=== PATIENT | male | born 1965 ===

== ENCOUNTER 2016-09-07 11:00 | Emergency (ER) | payer MEDICARE ==
[2016-09-07 11:00] VITALS: BMI 32.9
[2016-09-07 11:19] VITALS: RESP 16
[2016-09-07] MEDS ORDERED: Povidone Iodine Topical 10% Sol ONE (11:29)
[2016-09-07] MEDS ORDERED: Ciprofloxacin 400mg/200ml D5W 200 ML IVPB STA (11:30)
[2016-09-07] MEDS ORDERED: metroNIDAZOLE 500mg/100ml NS 100 ML IVPB STA (11:30)
[2016-09-07] MEDS ORDERED: metroNIDAZOLE 500mg/100ml NS 100 ML IVPB ONE (11:33)
[2016-09-07] MEDS ORDERED: Ciprofloxacin 400mg/200ml D5W 200 ML IVPB ONE (11:33)
[2016-09-07 11:44] LABS: BASO # 0.1 K/uL (0.0-0.2); BASO % 0.7 % (0.0-2.0); EOS # 0.7 K/uL (0.0-0.7); EOS % 8.6 % (0.0-4.0); HEMATOCRIT 46.6 % (35.0-51.0); LYMPH # 2.2 K/uL (1.0-4.3); MEAN CELL VOLUME 88.6 fl (80.0-94.0); MEAN CORPUSCULAR HGB CONC 32.7 g/dL (33.0-37.0); MEAN PLATELET VOLUME 8.9 fl (7.2-11.7); MONO # 0.5 K/uL (0.0-0.8); MONO % 6.7 % (0.0-10.0); NEUT # 4.4 K/uL (1.8-7.0); NRBC % 0.1 % (0.0-0.0); RED CELL DISTRIBUTION WIDTH 14.2 % (11.5-14.5); WHITE BLOOD COUNT 7.8 K/uL (4.8-10.8)
--- NOTE | 2016-09-07 11:55 | ED PDOC ---
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) Current Symptoms Are (Timing): Still Present Location Of Injury: Right: Hand, Anterior: Hand Severity: Mild Additional History Per: Patient Additional Complaint(s): pt right hand bit by dog after becoming agitated with a family argument, no hand n/t/w, no bleeding, dog immunizations up to date, dog acting normally no prev episodes no other injury Past Medical History Reviewed: Historical Data, Nursing Documentation, Vital Signs Vital Signs: Last Vital Signs Temp 98 F 09/07/16 11:11 Pulse 78 09/07/16 11:13 Resp 16 09/07/16 11:13 BP 148/116 H 09/07/16 11:13 Pulse Ox 98 09/07/16 13:08 - Medical History PMH: Alzheimer's Disease, Back Problems, CAD, COPD, HTN, Hypercholesterolemia, Hyperlipidemia Denies: HIV, Chronic Kidney Disease - Surgical History Surgical History: Denies: Pacemaker - Family History Family History: States: Unknown Family Hx, Hypertension - Living Arrangements Living Arrangements: With Family - Social History Current smoker - smoking cessation education provided: No - Home Medications Home Medications: Ambulatory Orders Medication Instructions Recorded Amlodipine Besylate 5 mg PO DAILY #0 tab 10/16/14 Atorvastatin [Lipitor] 20 mg PO HS #0 tab 10/16/14 Isosorbide Mononitrate 30 mg PO DAILY #0 ter 10/16/14 Omeprazole 40 mg PO DAILY #0 ecc 10/16/14 Tramadol HCl [Ultram] 50 mg PO Q6 #6 tab 03/14/15 Naproxen [Naprosyn] 500 mg PO Q12H #20 tab 11/04/15 Albuterol HFA [Ventolin HFA 90 90 mcg INH PRN PRN 12/02/15 mcg/actuation (8 g)] Hydrochlorothiazide [HCTZ] 25 mg PO DAILY 12/02/15 amLODIPine [Norvasc] 5 mg PO DAILY 12/02/15 Moxifloxacin HCl [Avelox] 400 mg PO DAILY #5 tablet 12/05/15 Prednisone 50 mg PO DAILY #0 tablet 12/05/15 Tiotropium [place] [Spiriva 2.5 mcg IH DAILY #30 ml 12/05/15 Respimat] Benzocaine/Menthol [Cepacol Sore 1 rito MM TID #15 rito 02/20/16 Throat] predniSONE [predniSONE Tab] 60 mg PO DAILY #9 tab 02/20/16 Hydrocortisone 1% Cream [Cortizone 1 appl TP BID PRN #1 tube 03/23/16 1% Cream] Cyclobenzaprine [Cyclobenzaprine 10 mg PO TID #12 tab 08/02/16 HCl] Naproxen [Naprosyn] 500 mg PO Q12H #20 tab 08/02/16 Non-Formulary 1 ea .ROUTE Q6 #1 ea 08/02/16 Doxycycline Hyclate 100 mg PO Q12 #20 tab 09/07/16 Metronidazole [Flagyl] 500 mg PO QID #40 tablet 09/07/16 - Allergies Allergies/Adverse Reactions: Allergies Allergy/AdvReac Type Severity Reaction Status Date / Time ciprofloxacin [From Cipro] Allergy RASH Verified 09/07/16 12:12 ciprofloxacin HCl Allergy RASH Verified 09/07/16 12:12 [From Cipro] Penicillins Allergy ANAPHYLAXIS Verified 03/23/16 14:30 seafood Allergy ANAPHYLAXIS Uncoded 11/04/15 11:32 Review of Systems ROS Statement: Except As Marked, All Systems Reviewed And Found Negative Cardiovascular: Negative for: Chest Pain Respiratory: Negative for: Shortness of Breath Musculoskeletal: Positive for: Hand Pain (r) Neurological: Negative for: Weakness, Numbness Physical Exam - Reviewed Nursing Documentation Reviewed: Yes Vital Signs Reviewed: Yes - Physical Exam Head Exam: Positive for: ATRAUMATIC, NORMAL INSPECTION, NORMOCEPHALIC Eye Exam: Positive for: Normal appearance Cardiovascular/Chest: Positive for: Regular Rate, Rhythm Respiratory: Positive for: Normal Breath Sounds Extremity: Positive for: Normal ROM, Capillary Refill (nml), Other (two superficial laceration on anteriorproximal 3rd and 4th phalanx does not appear to involved the tendon, hand nvi). Negative for: Tenderness, Deformity, Swelling Neurologic/Psych: Positive for: Alert, manufacturing finance manager II-XII, Oriented, Mood/Affect (calm) , Gait (steady). Negative for: Motor/Sensory Deficits - Laboratory Results Result Diagrams: 09/07/16 11:41 09/07/16 11:41 - ECG O2 Sat by Pulse Oximetry: 98 Pulse Ox Interpretation: Normal - Other Rad No standard instances X-Ray: Interpreted by Me X-Ray Interpretation: right hand 2 views no fx or dislocation no rofb - Progress ED Course And Treament: pt warned about cipro adverse effects Re-evaluation Time: 12:04 Condition: Improved Disposition - Clinical Impression Clinical Impression: Dog bite of right hand without complication - Patient ED Disposition Is Patient to be Admitted: No Counseled Patient/Family Regarding: Studies Performed, Diagnosis, Need For Followup, Rx Given - Disposition Referrals: [facility] [Outside] (wound check in two days) Disposition: Routine/Home Disposition Time: 13:04 Condition: GOOD Additional Instructions: wound check in 2 days Prescriptions: Doxycycline Hyclate 100 mg PO Q12 #20 tab Metronidazole [Flagyl] 500 mg PO QID #40 tablet Instructions: Animal Bite (ED)
[2016-09-07 12:00] LABS: PARTIAL THROMBOPLASTIN TIME 24.3 SECONDS (23.3-32.5)
[2016-09-07 12:02] LABS: ALB/GLOB RATIO 1.3 (1.0-2.1); ALKALINE PHOSPHATASE 60 U/L (38-126); ALT/SGPT 26 U/L (21-72); AST/SGOT 26 U/L (17-59); BILIRUBIN,TOTAL 0.5 mg/dl (0.2-1.3); BLOOD UREA NITROGEN 20 mg/dl (9-20); CALCIUM 9.1 mg/dL (8.4-10.2); CARBON DIOXIDE 26 mmol/L (22-30); CHLORIDE 108 mmol/L (98-107); GFR AFRICAN-AMERICAN > 60; GLUCOSE,RANDOM 111 mg/dL (75-110); POTASSIUM 4.2 MMOL/L (3.6-5.0); SODIUM 146 mmol/l (132-148); TOTAL PROTEIN 6.6 G/DL (6.3-8.2)
[2016-09-07] MEDS ORDERED: DiphenhydrAMINE 50 mg/ml Inj ONE (12:03)
[2016-09-07] MEDS ORDERED: DiphenhydrAMINE 50 mg/ml Inj IVP STA (12:08)
--- NOTE | 2016-09-07 13:00 | RAD ---
PROCEDURE: Right Hand Radiographs. HISTORY: dog bite 3rd and 4 th digits COMPARISON: None. FINDINGS: BONES: Normal. No fracture. JOINTS: Normal. No osteoarthritic changes. SOFT TISSUES: No radiopaque foreign body identified. OTHER FINDINGS: None. IMPRESSION: Normal right hand radiographs.
[2016-09-07] MEDS ORDERED: TDAP Vaccine 0.5 mL Syr IM ONE (13:11)
[2016-09-07 14:40] VITALS: BP 141/111; PULSE 75; O2SAT 100
[2016-09-07 14:48] VITALS: TEMP 97.9
== END 2016-09-07 14:55 | disposition home or self-care (01) ==
LOC: H.ER 11:00
DX: S61.451A Open bite of right hand, initial encounter (principal); W54.0XXA Bitten by dog, initial encounter; Z88.0 Allergy status to penicillin; F02.80 Dementia in other diseases classified elsewhere, unspecified severity, without behavioral disturbance, psychotic disturbance, mood disturbance, and anxiety; I10 Essential (primary) hypertension; Z23 Encounter for immunization
CPT/HCPCS: 73120; 80053; 85025; 85610; 85730; 90471; 90715; 96365; 96366; 96367; 96375; 99285; J0744; J1200

== ENCOUNTER 2016-10-30 14:05 | Emergency (ER) | payer MEDICARE ==
[2016-10-30 14:05] VITALS: BMI 32.9
[2016-10-30 14:08] VITALS: BP 162/94; PULSE 79; RESP 16; TEMP 98; O2SAT 100
[2016-10-30] MEDS ORDERED: Albuterol-Ipratrop 3 mg / 0.5 (3 ml) UD ONE (14:19)
[2016-10-30] MEDS ORDERED: Albuterol-Ipratrop 3 mg / 0.5 (3 ml) UD INH STA (14:19)
--- NOTE | 2016-10-30 14:39 | ED PDOC ---
HPI: Back Time Seen by Provider: 10/30/16 14:09 Chief Complaint (Nursing): Back Pain Chief Complaint (Provider): Lower back pain History Per: Patient History/Exam Limitations: no limitations Onset/Duration Of Symptoms: Days (1 day) Current Symptoms Are (Timing): Still Present Previous Symptoms: Back Pain Additional Complaint(s): Jun Etienne, a 51 year old female, with a history of colon cancer, hypertension, COPD and hyperlipidemia presents to the ED complaining of one day of lower back pain that radiates down both his legs. The patient states that he has had similar symptoms in the past but does not remember what medicine worked best for him. Denies bowel and bladder incontinence, numbness and tingling. PMD: Linda Shaw Past Medical History Vital Signs: Last Vital Signs Temp 98.0 F 10/30/16 14:06 Pulse 79 10/30/16 14:06 Resp 16 10/30/16 14:06 BP 162/94 H 10/30/16 14:06 Pulse Ox 100 10/30/16 14:06 - Medical History PMH: Alzheimer's Disease, Back Problems, CAD, COPD, HTN, Hypercholesterolemia, Hyperlipidemia Denies: HIV, Chronic Kidney Disease Other PMH: Colon Cancer - Surgical History Surgical History: Denies: Pacemaker - Family History Family History: States: Unknown Family Hx, Hypertension - Home Medications Home Medications: Ambulatory Orders Medication Instructions Recorded Amlodipine Besylate 5 mg PO DAILY #0 tab 10/16/14 Atorvastatin [Lipitor] 20 mg PO HS #0 tab 10/16/14 Isosorbide Mononitrate 30 mg PO DAILY #0 ter 10/16/14 Omeprazole 40 mg PO DAILY #0 ecc 10/16/14 Tramadol HCl [Ultram] 50 mg PO Q6 #6 tab 03/14/15 Naproxen [Naprosyn] 500 mg PO Q12H #20 tab 11/04/15 Albuterol HFA [Ventolin HFA 90 90 mcg INH PRN PRN 12/02/15 mcg/actuation (8 g)] Hydrochlorothiazide [HCTZ] 25 mg PO DAILY 12/02/15 amLODIPine [Norvasc] 5 mg PO DAILY 12/02/15 Moxifloxacin HCl [Avelox] 400 mg PO DAILY #5 tablet 12/05/15 Prednisone 50 mg PO DAILY #0 tablet 12/05/15 Tiotropium [place] [Spiriva 2.5 mcg IH DAILY #30 ml 12/05/15 Respimat] Benzocaine/Menthol [Cepacol Sore 1 rito MM TID #15 rito 02/20/16 Throat] predniSONE [predniSONE Tab] 60 mg PO DAILY #9 tab 02/20/16 Hydrocortisone 1% Cream [Cortizone 1 appl TP BID PRN #1 tube 03/23/16 1% Cream] Cyclobenzaprine [Cyclobenzaprine 10 mg PO TID #12 tab 08/02/16 HCl] Naproxen [Naprosyn] 500 mg PO Q12H #20 tab 08/02/16 Non-Formulary 1 ea .ROUTE Q6 #1 ea 08/02/16 Doxycycline Hyclate 100 mg PO Q12 #20 tab 09/07/16 Metronidazole [Flagyl] 500 mg PO QID #40 tablet 09/07/16 Cyclobenzaprine [Cyclobenzaprine 10 mg PO Q8H #20 tab 10/30/16 HCl] predniSONE [predniSONE Tab] 20 mg PO DAILY #12 tab 10/30/16 - Allergies Allergies/Adverse Reactions: Allergies Allergy/AdvReac Type Severity Reaction Status Date / Time ciprofloxacin [From Cipro] Allergy RASH Verified 10/30/16 14:06 ciprofloxacin HCl Allergy RASH Verified 10/30/16 14:06 [From Cipro] Penicillins Allergy ANAPHYLAXIS Verified 10/30/16 14:06 seafood Allergy ANAPHYLAXIS Uncoded 10/30/16 14:06 Review of Systems Genitourinary Male: Negative for: Incontinence Musculoskeletal: Positive for: Back Pain (Lower back pain that radiates down both legs.). Negative for: Other (Denies Numbness and tingling to lower back.) Physical Exam - Reviewed Nursing Documentation Reviewed: Yes Vital Signs Reviewed: Yes - Physical Exam Appears: Positive for: Non-toxic, No Acute Distress Head Exam: Positive for: ATRAUMATIC, NORMOCEPHALIC Skin: Positive for: Normal Color, Warm, Dry Eye Exam: Positive for: Normal appearance, EOMI ENT: Positive for: Normal ENT Inspection Cardiovascular/Chest: Positive for: Regular Rate, Rhythm, Chest Non Tender. Negative for: Tachycardia Respiratory: Positive for: Wheezing (Diffuse wheezing.) Back: Positive for: Normal Inspection, Other (Midline non-tender.) Extremity: Positive for: Other (Positive bilateral leg rays) Neurologic/Psych: Positive for: Alert, Oriented - ECG O2 Sat by Pulse Oximetry: 100 (RA) Pulse Ox Interpretation: Normal Medical Decision Making Medical Decision Makin:09 Initial Impression: 51 year old male presenting with lower back pain Initial Plan: * Duoneb 3ml INH * Ultram 100mg PO * Peak flow pre/post tx 15:30 Pt reports no improvement of pain. Additional medications ordered. 16:00 Pt reports pain in right arm at injection site, ice applied. 17:00 Pt eating a sandwich from [employer] and reports feeling much better. Scribe Attestation Documented by Alva Paz acting as a scribe for Caryn Fernandez PA-C. Provider Attestation All medical record entries made by the Scribe were at my direction and personally dictated by me. I have reviewed the chart and agree that the record accurately reflects my personal performance of the history, physical exam, medical decision making, and the department course for this patient. I have also personally directed, reviewed, and agree with the discharge instructions and disposition. Disposition - Clinical Impression Clinical Impression: Sciatica - Patient ED Disposition Is Patient to be Admitted: No Counseled Patient/Family Regarding: Diagnosis, Need For Followup, Rx Given - Disposition Referrals: [facility] [Outside] Disposition: Routine/Home Disposition Time: 17:01 Condition: GOOD Prescriptions: Cyclobenzaprine [Cyclobenzaprine HCl] 10 mg PO Q8H #20 tab predniSONE [predniSONE Tab] 20 mg PO DAILY #12 tab Instructions: Back Pain (ED)
== END 2016-10-30 17:22 | disposition home or self-care (01) ==
LOC: H.ER 14:05
DX: M54.30 Sciatica, unspecified side (principal); G30.9 Alzheimer's disease, unspecified; I10 Essential (primary) hypertension; Z85.038 Personal history of other malignant neoplasm of large intestine; Z88.0 Allergy status to penicillin
CPT/HCPCS: 94640; 96372; 99282; J1885; J2930